=== PATIENT | female | born 1940 | race Caucasian/White ===

== ENCOUNTER 2016-11-13 07:24 | Day surgery (SDC) | payer MEDICARE, BC ==
[2016-11-13] VITALS (7 sets, daily range): BP systolic 134–172; BP diastolic 46–71; Ht 160 cm; Wt 69.5 kg
[~2016-11-13] VITALS: Ht 160 cm; Wt 69.5 kg
--- NOTE | ~2016-11-13 | OP ---
PATIENT NAME: ANIA VALDOVINOS MEDICAL RECORD: [id number] LOCATION:[id number] ADMISSION DATE: SURGEON: SHELBY SHEPPARD MD DATE OF OPERATION: 11/13/2016 SURGEON: Shelby Sheppard MD. ANESTHESIA: General anesthesia by Amol Acosta CRNA. PREOPERATIVE DIAGNOSIS: Rectocele grade III, Pomeroy-Walker scale. POSTOPERATIVE DIAGNOSIS: Rectocele grade III, Pomeroy-Walker scale. FINDINGS: Rectocele grade III, Pomeroy-Walker scale. PROCEDURE: Rectocele repair by the levator ani muscle plication. SPECIMENS: Posterior vaginal wall mucosa. BLOOD LOSS: 250 mL. CLINICAL HISTORY: This is a 76-year-old female, who still has her uterus in place. She has complete pelvic prolapse with a grade III cystocele. Earlier this year, I performed a cystocele repair using fascia. Postoperatively, she had severe issues with hip pain from pre-existing osteoarthritis of her hip and back, which was exacerbated by placement of her legs up in the stirrups. After some physical therapy and after injection of steroids by the orthopedic surgeon, the hips are again better. At some point, she will need to have her hip replaced. In the interim, she has developed a fairly significant rectocele grade III on the Pomeroy-Walker scale. She is having difficulty emptying her rectum fully of a bowel movement. She would therefore like to have the rectocele repaired. SHE IS ALLERGIC TO CODEINE. We gave her Ancef 2 g IV neon installer to the OR. DESCRIPTION OF PROCEDURE: The patient was given induction of general anesthesia. She was placed into the lithotomy position. We kept the angles of the stirrups relatively low to avoid putting stress on her hips. A Courtney catheter was placed into the bladder and put to bag drainage. Weston retractors were used to retract the lateral vaginal fuentes. There was a defect of the peritoneal body, but there is also a band of tissue which prevents full opening of the vaginal introitus. A small episiotomy was made here to open up the posterior vaginal fourchette. A hermelinda-shaped incision was then marked out on the posterior vaginal wall. The posterior vaginal wall was infiltrated with Pitressin solution. Twenty units of Pitressin and 100 mL of injectable saline was used for hydrodissection. The hermelinda-shaped area marked out on the posterior vaginal wall was excised using a #15 blade and undermined using Metzenbaum scissors. The specimen was sent to pathology. We also dissected in the plane between the vaginal mucosa and the rectum. I extended this laterally to the levator ani muscles on either side. We then placed horizontal mattress sutures of 2-0 Prolene. These ran from the levator muscle one side to the levator muscle on the opposite side. These were placed, they were tied. A total of 5 plication sutures were placed. The last one brought the perineal body back together. Once these sutures had been placed, the rectocele was well reduced. The rectal mucosa was reapproximated using a running 4-0 Monocryl. Once the suturing was complete, the Courtney catheter was removed. The vagina was OPERATIVE REPORT [id number] ARUNAANIA Wright packed with Kerlix infiltrated with Premarin cream. The patient will be admitted for observation. She had issues with hip pain before and we will watch if the hip pain again develops. In the morning, the vaginal packing will be removed and she will be discharged home. I plan to see her in followup in about 2 weeks' time to check on her healing. TRANSINT:[id number] Voice Confirmation ID: [id number] DOCUMENT ID: [id number] SHELBY SHEPPARD MD CC: [id number] DICTATION DATE: 11/13/161450 DIRECTOR OF SLEEP: 11/13/162140 [facility] [address] [id number]
[~2016-11-13 07:24] MED LIST: OMEPRAZOLE20 M1 PO; PRAVACHOL40 MG PO; SYNTHROID88 MCG PO; TYLENOL PM1 TAB PO
[2016-11-13 09:11] LABS: HEMATOCRIT 37.9 % (36.0-48.0); HEMOGLOBIN 12.4 g/dL (12-16); MCH 28.9 pg (26.0-34.0); MCHC 32.7 g/dL (31.0-37.0); MCV 88.3 fL (80.0-100.0); MEAN PLATELET VOLUME 9.7 fL (7.4-10.4); RBC 4.29 10x6/uL (4.00-5.40); RDW 14.3 % (11.5-14.5); WBC 5.1 10x3/uL (4.8-10.8)
--- NOTE | 2016-11-13 15:04 | NUR ---
THE PATIENT REQUESTED A BATHROOM. A BEDPAN WAS OFFERED NUMEROUS TIMES. THE PATIENT DENIES A BEDPAN. ROOM NOT READY AND THE HOUSE SUP CALLED TO ADVISE THAT THE PATIENT REQUESTED TO GO TO HER ROOM SOON POSSIBLE
--- NOTE | 2016-11-13 15:42 | NUR ---
PT ARRIVED FROM RECOVERY ROOM VIA BED. O2 SAT 94% VIA ROOM AIR. REPORTS NO PAIN AT THIS TIME. JUST PRESSURE ON HER VAGINA DUE TO REPAIR PROCEDURE. AMBULATED PT TO BATHROOM.
--- NOTE | 2016-11-13 20:00 | NUR ---
REPORT RECEIVED AND CARE OF PT ASSUMED. PT LYING IN SUPINE POSITION WITH EYES CLOSED. IV IN LEFT HAND SALINE LOCKED. STARTED NS AT 50 ML / HR PER ORDER. PACKING IN VAGINA IN PLACE. PT VERY NAUSEATED AND STARTED VOMITING BILE DURING ASSESSMENT. GAVE ZOFRAN PER PRN ORDER. WILL CONTINUE TO MONITOR FOR NEEDS.
--- NOTE | 2016-11-13 22:28 | NUR ---
[facility] MEDICAITONS GIVEN. PT DECLINES PAIN MED AT THIS TIME AND STATES NAUSEA IS MUCH IMPROVED. WILL CONTINUE TO MONITOR FOR NEEDS.
[2016-11-14] VITALS: BP 144/45
--- NOTE | 2016-11-14 00:53 | NUR ---
PT ABLE TO URINATE 300+ YELLOW URINE. VAGINAL PACKING COMING OUT A LITTLE...TRIMMED PER PT REQUEST. PT CONTINUES TO DECLINE PAIN MEDICATION. CALL LIGHT WITHIN REACH.
[2016-11-14 04:00] VITALS: BP 162/69
--- NOTE | 2016-11-14 05:55 | NUR ---
REMOVED PACKING FROM VAGINA. PT TOLERATED WELL. ASSISTED TO USE RESTROOM AND GAVE WARM CLOTH TO WASH HANDS AND FACE.
--- NOTE | 2016-11-14 06:40 | NUR ---
PT DID WELL OVERNIGHT, REQUIRING NO PAIN MEDICATIONS, AND ONLY ONE DOSE OF ZOFRAN FOR NAUSEA/ VOMITING. PT ONLY REQUIRED STAND BY ASSIST TO GO TO RESTROOM.
--- NOTE | 2016-11-14 07:25 | NUR ---
PATIENT RECEIVED IN MID [place]OURKE POSITION ALERT AND READING NEWSPAPER. NO SIGNS OF DISTRESS NOTED. DENIES NEEDS. SIDE RAILS UP X2. BED IN LOW POSITION. CALL LIGHT IN REACH.
[2016-11-14 08:05] VITALS: BP 130/59
[2016-11-14] MEDS ORDERED: HYDROCODON-ACE1 EAC7 PO (08:20)
--- NOTE | 2016-11-14 08:55 | NUR ---
PATIENT SITTING UP ON SIDE OF BED ALERT. D/C TEACHING PROVIDED. STATES UNDERSTANDING. DENIES QUESTIONS. WRITTEN PRESCRIPTION FOR NORCO GIVEN. IV TO LEFT HAND D/C WITH CATH TIP INTACT. SITE COVERED WITH GAUZE AND BANDAID.
--- NOTE | 2016-11-14 09:00 | NUR ---
PATIENT D/C HOME WITH FRIEND. TRANSFERRED DOWNSTAIRS VIA WHEELCHAIR WITH VOLUNTEER.
== END 2016-11-14 09:00 | disposition home or self-care (01) ==
LOC: D.MS 07:24 → D.OPS 07:24 → D.PAN 12:45 → D.OPS 12:45 → D.PAN 13:45 → D.OPS 13:45 → D.MS 15:17 → D.OPS 11-14 09:00
PROVIDERS: Anesthesiology
DX: N81.6 Rectocele (principal); E03.9 Hypothyroidism, unspecified; K21.9 Gastro-esophageal reflux disease without esophagitis; Z01.812 Encounter for preprocedural laboratory examination

== ENCOUNTER → 2017-12-28 17:40 | Outpatient (CLI) | payer MEDICARE, BC ==
[2016-11-13 15:59] VITALS: BMI 27.1
[~2017-12-28 17:40] MED LIST changes: +HYDROCODON-ACE1 EAC7 PO
== END | disposition home or self-care (01) ==
LOC: D.LABREF 17:40
DX: R31.9 Hematuria, unspecified (principal); D72.829 Elevated white blood cell count, unspecified